=== PATIENT | female | born 1955 | race Caucasian/White ===

== ENCOUNTER 2020-06-21 12:28 | Emergency (ER) | payer OTHER ==
[2020-06-21] MEDS ORDERED: KETOROLAC TROMETHAMINE 15 MG/ML VIAL IM ONE (12:33)
[2020-06-21] MEDS ORDERED: KETOROLAC TROMETHAMINE 15 MG/ML VIAL ONE (12:43)
[2020-06-21 12:49] VITALS: BP 165/88; PULSE 72; TEMP 98.7; BMI 29.2
== END 2020-06-21 13:19 | disposition home or self-care (01) ==
LOC: FER 12:28
PROC: 3E0233Z Introduction of Anti-inflammatory into Muscle, Percutaneous Approach (ICD-10-PCS; principal; 2020-06-21)
DX: M25.552 Pain in left hip (principal)
CPT/HCPCS: 99284-25